=== PATIENT | female | born 1940 | race Caucasian/White ===

== ENCOUNTER 2016-09-30 13:04 | Inpatient (IN) | payer MEDICARE, BC ==
[~2016-09-30] VITALS: Ht 160 cm; Wt 67.6 kg
--- NOTE | ~2016-09-30 | CR71 ---
[facility] A Service of [facility] & [facility] RADIOLOGY TEXT RESULTS PATIENT: PARAM RUST LOCATION: [facility] 468-01 : 38 UNIT #: [id number] AGE: [address]: Roxanne May MD SEX: F ORDER DR: [id number] [facility] [address] [facility] [address]. [place], [place] [address] [id number] I MR#: [id number] Acc #: [id number] NAME: PARAM RUST : 1940 SEX: F STUDY DATE/TIME: 09/30/2016 14:02 UNIT: [facility] ROOM: [facility] STUDY DESCRIPTION: CR Chest Single View Attending Physician: Roxanne May M.D. Ordering Physician: Benjamin Gregory M.D. Primary Care Physician: Avani Mast M.D. MEDICAL IMAGING REPORT This report is preliminary unless electronic signature is present EXAM Portable chest HISTORY Tripped over curb today complains of chest pain and congestion. COMPARISON 06/24/2009 FINDINGS Portable view of the chest demonstrates parenchymal and hilar calcifications compatible with the sequela of previous granulomatous disease. Mild cardiomegaly. Diffuse aortic atherosclerotic changes. No pneumothorax or pulmonary contusion. Osseous structures show scoliosis. Dictated by... Laurie Perkins M.D. THIS IS AN ELECTRONICALLY VERIFIED REPORT Laurie Perkins M.D. at 10/01/2016 1:00 PM ERIK/callie TD: 09/30/2016 22:11 JOB #: [id number] MEDICAL IMAGING REPORT Page 1 of 1 COPY
--- NOTE | ~2016-09-30 | CO ---
Unit #: [id number] #: [id number] Patient: PARAM RUTS [id number] [address] [address] [id number] I MR#: [id number] NAME: PARAM RUST ROOM: 468 Age: 76 Sex: F Admission Date: 09/30/2016 : 1940 Attending Physician: Nadiya Larios M.D. Primary Care Physician: Avani Mast M.D. Consultation Date: 10/02/2016 CONSULTATION REPORT REASON FOR CONSULT Postop care. ADMITTING DIAGNOSIS Status post fall. HISTORY OF PRESENT ILLNESS This is a very pleasant 76-year-old female with past medical history significant for atrial fibrillation and hypertension who presented to the emergency room after she fell at a restaurant and had hit her left side. The patient was transferred to our ER where an initial workup was consistent with left hip fracture. The patient today is postop day two. The patient is on 3 L nasal cannula and her saturation is 94%. Patient stated that she never had a lung problem. She had never been on inhalers. She smoked for probably 30 years, but she quit in 1993. She denied any cough or shortness of breath at this point. PAST MEDICAL HISTORY 1. Hypertension. 2. Stroke. 3. Atrial fibrillation. PAST SURGICAL HISTORY 1. Cerebral aneurysm fixation. 2. Left hip surgery. HOME MEDICATIONS 1. Atenolol. 2. Felodipine. 3. Tylox. 4. Eliquis. ALLERGIES No known drug allergies. SOCIAL HISTORY The patient smoked for a long time, but she quit in 1993. No history of alcohol or drug abuse. FAMILY HISTORY Unremarkable. PHYSICAL EXAMINATION GENERAL: The patient is in no acute distress. Unit #: [id number] #: [id number] Patient: PARAM RUST VITAL SIGNS: Blood pressure is 154/69, respiratory rate 19, O2 saturation 94% on 3 L nasal cannula. HEENT: Atraumatic, normocephalic. PERRLA. EOMI. NECK: Supple. No JVD. No lymphadenopathy. CHEST: Clear to auscultation bilaterally. HEART: S1, S2. No murmur, gallops, or rubs. ABDOMEN: Soft, nontender. Bowel sounds are positive. No hepatosplenomegaly. EXTREMITIES: No edema or cyanosis. SKIN: No rashes. CENTRAL NERVOUS SYSTEM: Awake, alert, oriented x3. No focal motor/sensory deficits. DIAGNOSTIC STUDIES LABORATORY: Creatinine 1, sodium 131. White blood count 11, hemoglobin 10.9, platelets 197,000. ASSESSMENT 1. Acute hypoxic respiratory failure, postop related. 2. Left hip fracture. 3. Atrial fibrillation. 4. Hypertension. 5. Ex-smoker. PLAN 1. Patient currently saturating 93% on 3 L nasal cannula. Her baseline is room air and our goal is to wean her oxygen down to room air as tolerated. 2. Patient's incentive spirometer effort is about 500-700 mL. She is advised and encouraged to use her incentive spirometer every one hour to two hours while awake up to 10 times. Will add bronchodilator to help with pulmonary toilet. 3. Early ambulation and PT when allowed by orthopedic. 4. Deep venous thrombosis/gastrointestinal prophylaxis. I would like to thank Dr. Shipman for allowing me to be a part of this patient's care. Dictated by... Kinjal Osman TD: 10/02/2016 16:47 JOB #: [id number] Unit #: [id number] #: [id number] Patient: YOCASTA,PARAM CALLAWAY CONSULTATION REPORT Page 1 of 1 X MAYURI HUNTER MD CONSULTATION REPORT
--- NOTE | ~2016-09-30 | EKG ---
PATIENT: PARAM RUST UNIT #: [id number] Ventricular Rate: 72 BPM Atrial Rate: 72 BPM P-R Interval: 148 ms QRS Duration: 84 ms Q-T Interval: 376 ms QTC Calculation(Bezet): 411 ms P Drifting: 63 degrees Calculated R Drifting: 27 degrees Calculated T Drifting: -119 degrees Diagnosis Line: Sinus rhythm with Premature atrial complexes Diagnosis Line: LVH with repolarization abnormalities Diagnosis Line: Abnormal ECG Diagnosis Line: When compared with ECG of 30-SEP-2016 13:33, Diagnosis Line: (unconfirmed) Diagnosis Line: Premature ventricular complexes are no longer Diagnosis Line: Present Diagnosis Line: Inverted T waves have replaced nonspecific T wave Diagnosis Line: abnormality in Inferior leads Diagnosis Line: Confirmed by NANCY MAGAÑA MD ([id number]) on Diagnosis Line: 10/02/2016 8:26:14 PM INTERPRETING MD: BAYLEE
--- NOTE | ~2016-09-30 | CO ---
Unit #: [id number] #: [id number] Patient: PARAM RUST [id number] [facility]. [place], [place] [address] [id number] I MR#: [id number] NAME: PARAM RUST ROOM: 468 Age: 76 Sex: F Admission Date: 09/30/2016 : 1940 Attending Physician: Nadiya Larios M.D. Primary Care Physician: Avani Mast M.D. CONSULTATION REPORT REASON FOR CONSULTATION Preoperative surgical clearance. HISTORY OF PRESENT ILLNESS This is a pleasant 76-year-old female, who normally follows with Dr. Aaron. She states she has recently been at [facility] approximately 2 weeks ago for congestive heart failure. During her admission there, the patient did have an episode of paroxysmal atrial fibrillation. She underwent transesophageal echocardiogram and then cardioversion. She is currently in normal sinus rhythm. The patient also was found to have qehmwazt-ex-aikizx aortic stenosis at that time. Peak gradient of aorta aortic valve is 47 mmHg. The mean gradient of the aortic valve, 27 mmHg with aortic valve area is calculated to be 0.82 sq cm. The patient tells me that she has an upcoming appointment with surgical group; however, she does not know the surgeon's name for evaluation for potential valve replacement surgery. The patient did also undergo nuclear stress testing at [facility], which was negative for stress-induced ischemia. She also has a past medical history significant for paroxysmal atrial fibrillation, again status post cardioversion, and was discharged home on Eliquis. 1. Stroke 14 years ago. 2. Hypertension. 3. Hyperlipidemia. 4. Aneurysm repair. 5. Bladder prolapse with pessary placement. 6. The patient states she was out yesterday at [employer], when she fell over a curb. She denies any syncopal episode. She states she just simply fell on the curb. She did hit her head. CT scan was performed, which showed no evidence of bleed. She was found to have a left hip fracture and we are being asked to see for presurgical clearance. 7. At present, she is resting in bed. Her daughter is at bedside. She denies any complaints of chest pain or shortness of breath. EKG shows sinus rhythm with PVCs, rate of 89 beats per minute, criteria for LVH, cannot rule out previous septal infarct. QTc interval 433 milliseconds. PAST MEDICAL HISTORY Significant for; 1. Hypertension. 2. Hyperlipidemia, not on statin therapy. The patient states she is unable to tolerate secondary to cost as well as some myalgias. 3. History of stroke. 4. Recently diagnosed with paroxysmal atrial fibrillation at [place] Unit #: [id number] #: [id number] Patient: CASE,[facility], status post cardioversion, was discharged home on Eliquis. 5. Cerebral aneurysm repair. 6. Diastolic CHF. PAST SURGICAL HISTORY 1. Cerebral aneurysm fixation per Neurosurgery. 2. Pessary placement. 3. Plate in the left wrist. HOME MEDICATIONS 1. Felodipine ER 2.5 mg p.o. daily. 2. Tenormin 25 mg p.o. daily. 3. Eliquis 2.5 mg p.o. b.i.d. ALLERGIES No known drug allergies. The patient reports an intolerance to aspirin, so she will not take it, and had severe bleeding secondary to aspirin in the past as well as statin therapy. SOCIAL HISTORY The patient is a reformed smoker, quit in 1994. Denies illicit drugs or alcohol. FAMILY HISTORY Positive for coronary artery disease, questionable NE. The patient's brother at age 47. PHYSICAL EXAMINATION GENERAL: This is a very pleasant, elderly female, 76-year-old. Daughter is currently present at bedside. VITAL SIGNS: Temperature 98.6, respiratory rate 16 to 18, pulse is 71, and blood pressure is 119/53. HEENT: Head is atraumatic and normocephalic. Pupils are equal and round. NECK: Trachea is midline. No lymphadenopathy or thyromegaly. Positive for JVD. CARDIOVASCULAR: S1 to S2. Regular rate and rhythm. Positive murmur, best heard at the right sternal border. LUNGS: Clear to auscultation anterior. Some fine rales in the bases with scattered wheezes noted. ABDOMEN: Soft, nontender, and nondistended. Bowel sounds are present. EXTREMITIES: Pulses are palpable, but weak. No edema, clubbing, or cyanosis is noted. NEUROLOGIC: She is awake, alert, and oriented. She moves all extremities with the exception of the left leg secondary to hip fracture. Follows commands with ease. DIAGNOSTIC STUDIES LABORATORY RESULTS: Sodium 134, potassium 3.5, chloride 102, CO2 of 26, BUN 22, creatinine 1.1, and glucose 108. PT 11.3 and INR 1.0. Hemoglobin 11.7, hematocrit 36.1, WBC 10.2, and platelet count 227. IMAGING RESULTS: Chest x-ray, mild cardiomegaly. Parenchymal and hilar calcifications compatible with sequelae of previous granulomatous disease. Diffuse aortic atherosclerotic change, no pneumo or pulmonary contusion. Osseous structures show scoliosis. Unit #: [id number] #: [id number] Patient: CASE,PARAM CALLAWAY X-ray of the hip shows mildly varus angulated proximal left femur fracture, probably representing an intertrochanteric fracture. CT of the head shows no definite acute intracranial abnormality. Status post right suboccipital craniotomy with encephalomalacia, right cerebellar hemisphere most likely related to prior vascular insult or trauma. Scattered periventricular white matter change, most likely related to small-vessel ischemic disease. CT of the cervical spine shows degenerative changes noted at multiple levels of the cervical spine with varying degrees of neuroforaminal narrowing predominantly involving right C3 and C4, bilateral C4 and C5, bilateral C5 and C6, right worse than left. Mild bilateral neuroforaminal narrowing is suspected at C6 and C7. No significant canal stenosis. Borderline size canal is noted in the mid cervical spine. No acute displaced fracture. CARDIOVASCULAR STUDIES: EKG shows normal sinus rhythm, rate of 89 beats per minute. PVCs are present. LVH. QTc interval of 433 milliseconds. Cannot rule out previous septal infarct. No acute ischemic changes noted. IMPRESSION 1. Status post fall. 2. Left hip fracture. 3. History of paroxysmal atrial fibrillation, recently at [facility], requiring subsequent NEISHA and cardioversion, now in normal sinus rhythm. The patient was on Eliquis. 4. Cobcagwp-gt-gkdktd aortic stenosis per NEISHA at [facility]. Peak gradient in the aortic valve is 47 mmHg. The mean gradient is 27 mmHg. The aortic valve area is calculated at 0.82 sq cm. 5. Recent Lexiscan Cardiolite, normal at [facility]. 6. History of diastolic congestive heart failure with EF of 61% per 2D echo on 09/09/2016. 7. Hypertension. 8. Hyperlipidemia. 9. History of cerebrovascular accident 14 years ago and history of cerebral aneurysm repair. PLAN We have been asked to see the patient secondary to cardiac clearance. She denies any complaints of chest pain. At present, the patient states her last Eliquis dose was at 10:[address] Sal will discuss with Dr. Leary about the patient's last dose of Eliquis. She states the patient's is able to undergo surgery in a moderate but acceptable risk as long as they do not get into issues with hypotension during the case. If so, I would recommend pushing fluids. We will check a Mag level as the patient is having some ventricular ectopy. We will give her an additional 20 mEq of KCl x1 now and repeat CBC and BMP as well as EKG in the morning. Thank you for asking us to see this patient. We will follow along and she will follow up with Dr. Aaron at discharge. Unit #: [id number] #: [id number] Patient: CASE,PARAM CALLAWAY Dictated by... Adri Brito A.P.R.N. LMW/modl TD: 10/02/2016 02:33 JOB #: [id number] CONSULTATION REPORT Page 1 of 1 X Adri Brito APRN CONSULTATION REPORT
--- NOTE | ~2016-09-30 | CR106 ---
[facility] A Service of [facility] & [facility] RADIOLOGY TEXT RESULTS PATIENT: PARAM RUST LOCATION: [facility] 468-01 : 38 UNIT #: [id number] AGE: [address]: Roxanne May MD SEX: F ORDER DR: [id number] [facility] [address] [facility]. [place], [place] [address] [id number] I MR#: [id number] Acc #: [id number] NAME: PARAM RUST : 1940 SEX: F STUDY DATE/TIME: 09/30/2016 14:05 UNIT: [facility] ROOM: [facility] STUDY DESCRIPTION: CR Femur 2 Views Lt Attending Physician: Roxanne May M.D. Ordering Physician: Benjamin Gregory M.D. Primary Care Physician: Avani Mast M.D. MEDICAL IMAGING REPORT This report is preliminary unless electronic signature is present EXAM Left femur multiple views HISTORY Tripped over curb today. Left hip and femur pain. FINDINGS Routine views of the left femur demonstrates a mildly displaced proximal left femur fracture may represent either subtrochanteric or intertrochanteric fracture with mild varus angulation. Over 2 cm of displacement of the distal fracture fragment medial. Hip joint appears maintained. Soft tissues unremarkable. Small density at the line at the level of the fracture line may represent a small fracture fragment. Dictated by... Laurie Perkins M.D. THIS IS AN ELECTRONICALLY VERIFIED REPORT Laurie Perkins M.D. at 10/01/2016 1:00 PM ERIK/callie TD: 09/30/2016 22:17 JOB #: [id number] MEDICAL IMAGING REPORT Page 1 of 1 COPY
--- NOTE | ~2016-09-30 | CR150 ---
[facility] A Service of [facility] & [facility] RADIOLOGY TEXT RESULTS PATIENT: PARAM RUST LOCATION: [facility] 468-01 : 38 UNIT #: [id number] AGE: [address]: Roxanne May MD SEX: F ORDER DR: [id number] [facility] [address] [facility]. [place], [place] [address] [id number] I MR#: [id number] Acc #: [id number] NAME: PARAM RUST : 1940 SEX: F STUDY DATE/TIME: 10/01/2016 13:17 UNIT: [facility] ROOM: [facility] STUDY DESCRIPTION: CR Hip Min 2 Views Lt Attending Physician: Roxanne May M.D. Ordering Physician: José Mendes M.D. Primary Care Physician: Avani Mast M.D. MEDICAL IMAGING REPORT This report is preliminary unless electronic signature is present EXAM Left hip HISTORY 76-year-old female status post left hip ORIF for fracture. FINDINGS Six intraoperative digital radiographs submitted. 1 minute 21 seconds fluoro time utilized. Sequence of radiographs demonstrates intraoperative fixation of a intertrochanteric left femur fracture with a intramedullary nail and interlocking hip screw. Final AP view demonstrates the fracture to be in anatomic position with normal anatomic alignment. Hip joint unremarkable. IMPRESSION Status post ORIF left intertrochanteric hip fracture in expected position. Dictated by... Laurie Perkins M.D. THIS IS AN ELECTRONICALLY VERIFIED REPORT Laurie Perkins M.D. at 10/02/2016 7:14 AM ERIK/finn TD: 10/02/2016 00:05 JOB #: [id number] MEDICAL IMAGING REPORT Page 1 of 1 COPY
--- NOTE | ~2016-09-30 | CO ---
Unit #: [id number] #: [id number] Patient: PARAM PUENTE [id number] [address] [address] [id number] I MR#: [id number] NAME: PARAM PUENTE ROOM: 468 Age: 76 Sex: F Admission Date: 09/30/2016 : 1940 Attending Physician: Roxanne May M.D. Primary Care Physician: Avani Mast M.D. Consultation Date: 09/30/2016 CONSULTATION REPORT CHIEF COMPLAINT Left hip fracture. HISTORY OF PRESENT ILLNESS Ms. Puente is a 76-year-old female, who fell and tripped outside of [employer]. She tripped over a concrete parking curb. She was unable to stand or bear weight on the affected extremity. She was brought by EMS to the emergency department, where plain film radiographs confirmed a left intertrochanteric hip fracture. Orthopedic consultation was subsequently requested. The patient is examined supine in her hospital bed. She states that she is unable to move or rotate the left lower extremity at all. movement causes severe pain in the left leg and hip. It is relieved by pain medication and immobilization. She previously ambulated with a cane or walker occasionally. PAST MEDICAL HISTORY 1. Reported history of valvular insufficiency possible aortic valve. 2. Hypertension. 3. History of CVA. 4. Atrial fibrillation. PAST SURGICAL HISTORY 1. Unspecified prior surgery for cerebral aneurysm possible coiling. 2. Cardioversion of atrial fibrillation. HOME MEDICATIONS Atenolol, felodipine, Eliquis. ALLERGIES No known drug allergies. FAMILY HISTORY Noncontributory to the current illness. REVIEW OF SYSTEMS Ten systems are reviewed and negative except as noted in the HPI. PHYSICAL EXAMINATION GENERAL APPEARANCE: Healthy-appearing female, appearing stated age, in no acute distress. Unit #: [id number] #: [id number] Patient: PARAM UPENTE PSYCHIATRIC: Awake, alert, and oriented to person, place, time, and situation. HEENT: Normocephalic and atraumatic cranium. Pupils are equally round and reactive to light. CARDIAC: Irregularly irregular rhythm. PULMONARY: No increased work of breathing. Symmetric chest rise. ABDOMEN: Nontender and nondistended. NEUROLOGIC: Intact motor and sensory function in the left foot and EHL and FHL as well as in plantar flexion and dorsiflexion. VASCULAR: Her feet are warm and well perfused with a palpable 2+ dorsalis pedis pulse. SKIN: There is no evidence of open injury. There is soft tissue swelling and early ecchymosis. MUSCULOSKELETAL: Left lower extremity shortened and externally rotated. Further range of motion is deferred. DIAGNOSTIC STUDIES IMAGING STUDIES: Plain film radiographs reviewed of the left hip and demonstrated an intertrochanteric hip fracture with somewhat of a subtrochanteric variant. LABORATORY RESULTS: Hemoglobin is 13.2, otherwise unremarkable. IMPRESSION This is a 76-year-old female with a left intertrochanteric variant hip fracture after a ground level mechanical fall. Preoperative cardiac clearance has been requested. Plan is that she is to undergo aortic valve repair. It sounds in the next several weeks. She is also on Eliquis as well. She had her last dose this morning. We will plan for surgical intervention tomorrow. Pending cardiac clearance. increased perioperative bleeding risks on Eliquis, but further delay in surgical fixation is felt to likely further compromise her ultimate outcome. She is to be n.p.o. after midnight with again plan for surgery tomorrow pending cardiac clearance. Dictated by... Kinjal Cormier/dave TD: 10/01/2016 06:55 JOB #: [id number] CONSULTATION REPORT Page 1 of 1 X José Mendes MD CONSULTATION REPORT
--- NOTE | ~2016-09-30 | HP ---
Unit #: [id number] #: [id number] Patient: PARAM PUENTE [id number] [facility] [address] [facility]. [place], [place] [address] [id number] I MR#: [id number] NAME: PARAM PUENTE ROOM: 468 Age: 76 Sex: F Admission Date: 09/30/2016 : 1940 Attending Physician: Roxanne May M.D. Primary Care Physician: Avani Mast M.D. HISTORY AND PHYSICAL ADMISSION DIAGNOSES 1. Status post fall. 2. Left hip fracture. 3. History of recently diagnosed atrial fibrillation. 4. Hypertension. 5. History of cerebrovascular accident in the past. HISTORY OF PRESENT ILLNESS Ms. Puente is a 76-year-old female, a patient of Dr. Avani Barriga, who was apparently having lunch at a restaurant. When she was leaving the restaurant, she tripped on the curb and sustained a fall on the left side, sustaining a left hip fracture along with a left-sided (1) laceration. The patient was brought to [facility]. Again, initial evaluation showed a left intertrochanteric hip fracture. Apparently she already took her Eliquis today. She has been evaluated by orthopedic surgery, and she is due to undergo ORIF or IM nail tomorrow morning. She currently appears comfortable. Denies any chest pain, shortness of air, headache, dizziness, fever, chills, nausea, vomiting, diarrhea, cough, syncope or pre-syncope. REVIEW OF SYSTEMS A 12-point review of systems on this patient is basically negative except as above. PAST MEDICAL HISTORY Significant for history of hypertension, history of stroke and recently diagnosed A fib. PAST SURGICAL HISTORY Significant for cerebral aneurysm fixation per neurosurgeons. HOME MEDICATIONS Include atenolol, felodipine, Tylox, Tylenol, Eliquis. ALLERGIES No known drug allergies. SOCIAL HISTORY She is a reformed smoker. Denies any alcohol or illicit drugs. FAMILY HISTORY Unit #: [id number] #: [id number] Patient: PARAM PUENTE Unremarkable. PHYSICAL EXAMINATION GENERAL: She is a 76-year-old female in no acute distress. VITAL SIGNS: BP 144/63, heart rate 47, respirations 14, temperature 98.3. HEENT: Head is atraumatic. Pupils are equal, round and reactive to light and accommodation. Extraocular muscles are intact. Oropharynx is clear. NECK: Neck is supple. No masses. No JVD. No bruit. RESPIRATORY: Chest is diminished at the bases; generally clear. CARDIOVASCULAR: S1, S2. No murmurs. ABDOMEN: Abdomen is soft, nontender, nondistended. EXTREMITIES: Lower extremities have no cyanosis, clubbing or edema. NEUROLOGIC: Patient grossly intact. No focal deficits. LABS AND DIAGNOSTICS LABS: Chemistry significant for blood glucose of 153, GFR 48.1, potassium 3.4. Coagulation panel unremarkable. Hematology unremarkable. IMAGING: The x-ray, as above, shows left hip fracture. ASSESSMENT AND PLAN 1. Status post fall. 2. Left hip fracture status post ortho evaluation. Scheduled for surgery in the morning. Cardiology clearance pending. 3. History of recently diagnosed atrial fibrillation status post cardioversion and on chronic anticoagulation. Continue per cardiology. Holding Eliquis for surgery. 4. Hypertension. Resume home meds. 5. GI and DVT prophylaxis with Protonix. Patient already had Eliquis today. Dictated by Kinjal Cintron/brenda TD: 10/01/2016 07:51 JOB #: [id number] HISTORY AND PHYSICAL Page 1 of 1 X Jorge L Shipman MD X HISTORY AND PHYSICAL
--- NOTE | ~2016-09-30 | DS ---
Unit #: [id number] #: [id number] Patient: PARAM PUENTE [id number] [address] [address] [id number] I MR#: [id number] NAME: PARAM PUENTE ROOM: 468 Age: 76 Sex: F Admission Date: 09/30/2016 : 1940 Discharge Date: 10/04/2016 Attending Physician: Nadiya Larios M.D. Primary Care Physician: Avani Mast M.D. DISCHARGE SUMMARY FINAL DIAGNOSES 1. Left hip fracture, status post surgery, postop day three. 2. Hypertension. 3. History of chronic diastolic congestive heart failure. 4. Acute hypoxic respiratory failure postop, which is resolved. 5. Paroxysmal atrial fibrillation, on anticoagulation therapy. 6. Aortic stenosis. 7. History of cerebrovascular accident. 8. Hyperlipidemia. DISCHARGE MEDICATIONS 1. Mini neb treatment with Duo-Neb q.i.d. and q.4 p.r.n. 2. Tylenol 650 q.6 p.r.n. 3. Eliquis 2.5 mg q.12. 4. Tenormin 25 mg daily. 5. Senokot two tablets p.o. twice a day. 6. Milk of mag q.6 p.r.n. 7. MiraLAX 17 grams twice a day. Please hold this medication is patient is having diarrhea. 8. Lipitor 20 mg q. h.s. 9. Plendil 2.5 mg daily. 10. Glycerin suppository p.r.n. for constipation. 11. Motrin 600 mg q.8 hours p.r.n. for pain. 12. Hydrocodone 5/325, one tablet q.6 p.r.n. 13. Protonix 40 mg daily. CONSULTATION DURING HOSPITALIZATION 1. Dr. Mendes - Orthopedic Surgery. 2. Dr. Ibarra - Cardiology Services. 3. Dr. Joceline Galindo - Pulmonary Services. LAB WORKUP ON DISCHARGE BMP shows sodium 132, potassium 4.0, chloride 103, BUN 25, creatinine 1.1, GFR 48.1, calcium 8.2. CBC shows WBC 10.1, hemoglobin 10.4, hematocrit 30.9 and platelet count of 169. Troponin less than 0.03. Magnesium 1.9. SIGNIFICANT RADIOLOGICAL STUDIES DONE DURING HOSPITALIZATION Hip x-ray which was done on admission showed left femur fracture. CT scan of the head without contrast which shows no definite acute Unit #: [id number] #: [id number] Patient: CASE,PARAM CALLAWAY intracranial abnormality, status post right suboccipital craniotomy with encephalomalacia right cerebellar hemisphere, most likely related to prior vascular insult. CT scan of the cervical spine which showed degenerative changes are noted at multiple levels of surgical spine with some foraminal narrowing involving C3-C4, bilateral C4-C5, bilateral C5-C6. No significant canal stenosis is noted. No acute fracture is noted. PAST SURGICAL HISTORY Significant for: 1. Cerebral aneurysm surgery many years ago. 2. Left distal radial fracture. Surgery was done in [address] Bernardo. HOSPITAL COURSE Ms. Puente is a 76-year-old female who was admitted by my colleague, Dr. Shipman, after she sustained a fall at home. The patient had left hip fracture. Was seen by orthopedic surgeon. The patient had surgery done and doing very well. After the surgery, the patient did have acute hypoxic respiratory failure. Dr. Galindo was consulted from pulmonary services and patient was started on oxygen and mini neb treatment. Incentive spirometry was encouraged every one to two hours. Ambulation was started, PT was started, and patient is doing much better at this time. The patient was also seen by cardiology for preoperative clearance. The patient does have a history of paroxysmal atrial fibrillation which was recently diagnosed at [facility] requiring subsequent NEISHA and cardioversion. The patient is in normal sinus rhythm and she is on anticoagulation therapy which is Eliquis. The patient does have history of moderate to severe aortic stenosis but NEISHA at [facility]. The patient had a recent Lexiscan Cardiolite test done which was normal at [facility]. The patient does have a history of diastolic congestive heart failure with a systolic ejection fraction of 61%. The patient has had a history of CVA 14 years ago and history of cerebral aneurysm repair as per surgical history. I have discussed with patient's daughter at length. The patient is being transferred to rehab facility. EXAMINATION ON DISCHARGE Blood pressure 129/62, respiratory rate 16, pulse is 64, temperature 97.9. Oxygen saturation is 99%. HEAD: Normocephalic. CHEST: Fair air entry. CVS: S1 is positive. Regular rhythm. ABDOMEN: Soft. EXTREMITIES: Pulses are palpable. DISCHARGE INSTRUCTIONS 1. The patient is being discharged to detention at rehab facility. 2. Medications as per Med Rec. 3. PT/OT per ortho. 4. CBC, BMP in three to four days. 5. Please place dry 4 x 4 and Tegaderm over each incision and change daily. 6. Please do lipid profile and liver enzymes in six weeks as patient has been started on anti-lipid medications. 7. Continue incentive spirometry. Unit #: [id number] #: [id number] Patient: CASE,PARAM CALLAWAY Dictated by... Kinjal River/garcia TD: 10/04/2016 12:11 JOB #: [id number] DISCHARGE SUMMARY Page 1 of 1 X Nadiya Larios MD X DISCHARGE SUMMARY
--- NOTE | ~2016-09-30 | EKG ---
PATIENT: PARAM RUST UNIT #: [id number] Ventricular Rate: 89 BPM Atrial Rate: 89 BPM P-R Interval: 136 ms QRS Duration: 88 ms Q-T Interval: 356 ms QTC Calculation(Bezet): 433 ms P [place]: 55 degrees Calculated R [place]: 12 degrees Calculated T [place]: -162 degrees Diagnosis Line: Sinus rhythm with Premature supraventricular Diagnosis Line: complexes with occasional Premature ventricular Diagnosis Line: complexes Diagnosis Line: Left ventricular hypertrophy with repolarization Diagnosis Line: abnormality Diagnosis Line: Abnormal ECG Diagnosis Line: When compared with ECG of 24-JUN-2009 10:57, Diagnosis Line: Premature ventricular complexes are now Present Diagnosis Line: Premature supraventricular complexes are now Diagnosis Line: Present Diagnosis Line: Minimal criteria for Septal infarct are now Diagnosis Line: Present Diagnosis Line: T wave inversion more evident in Lateral leads Diagnosis Line: Confirmed by NANCY MAGAÑA MD ([id number]) on Diagnosis Line: 10/02/2016 8:12:21 PM INTERPRETING MD: BAYLEE
--- NOTE | ~2016-09-30 | CT71 ---
[facility] A Service of [facility] & [facility] RADIOLOGY TEXT RESULTS PATIENT: PARAM RUST LOCATION: [facility] 468 : 38 UNIT #: [id number] AGE: [address]: Roxanne May MD SEX: F ORDER DR: [id number] [facility]. [place], [place] [address] [id number] I MR#: [id number] Acc #: [id number] NAME: PARAM RUST : 1940 SEX: F STUDY DATE/TIME: 09/30/2016 14:34 UNIT: [facility] ROOM: [facility] STUDY DESCRIPTION: CT Head Wo Contrast Attending Physician: Roxanne May M.D. Ordering Physician: Benjamin Gregory M.D. Primary Care Physician: Avani Mast M.D. MEDICAL IMAGING REPORT This report is preliminary unless electronic signature is present EXAM Noncontrast head CT HISTORY Trauma, fell, hit head neck tenderness and headaches. Past history of cerebral aneurysm. TECHNIQUE This CT exam was performed with one or more of the following radiation dose reduction techniques: automatic control, adjustment of mA and/or kV according to patient size, and iterative reconstruction. FINDINGS Axial noncontrast imaging of the brain demonstrates postsurgical changes from suboccipital craniotomy. Decreased attenuation of the right cerebellar hemisphere compatible with encephalomalacia and probable old vascular insult. Generalized periventricular white matter changes. No mass or mass effect or midline shift. No hemorrhage or abnormal extraaxial fluid collections. Mastoids sinuses unremarkable. IMPRESSION 1. No definite acute intracranial abnormality. 2. Status post right suboccipital craniotomy with encephalomalacia right cerebellar hemisphere most likely related to prior vascular insult or trauma. 3. Scattered periventricular white matter changes most likely related to small vessel ischemic disease. Dictated by.Noemí Perkins M.D. [facility] A Service [facility] & [facility] RADIOLOGY TEXT RESULTS PATIENT: PARAM RUST LOCATION: [facility] 468 : 38 UNIT #: [id number] AGE: [address]: Roxanne May MD SEX: F ORDER DR: THIS IS AN ELECTRONICALLY VERIFIED REPORT Laurie Perkins M.D. at 10/01/2016 1:00 PM ERIK/callie TD: 09/30/2016 22:18 JOB #: [id number] MEDICAL IMAGING REPORT Page 1 of 1 COPY
--- NOTE | ~2016-09-30 | CT52 ---
[facility] A Service of [facility] & [facility] RADIOLOGY TEXT RESULTS PATIENT: PARAM RUST LOCATION: [facility] 468-01 : 38 UNIT #: [id number] AGE: [address]: Nadiya Larios MD SEX: F ORDER DR: [id number] [facility] [address] [facility] [place], [place] [address] [id number] I MR#: [id number] Acc #: [id number] NAME: PARAM RUST : 1940 SEX: F STUDY DATE/TIME: 09/30/2016 14:36 UNIT: [facility] ROOM: [facility] STUDY DESCRIPTION: CT Cervical Spine Wo Cont Attending Physician: Roxanne May M.D. Ordering Physician: Benjamin Gregory M.D. Primary Care Physician: Avani Mast M.D. MEDICAL IMAGING REPORT This report is preliminary unless electronic signature is present EXAM CT of the cervical spine without contrast dated 09/30/2016 COMPARISON None HISTORY Status post fall at store today. Left sided head injury. Headache and neck tenderness in the posterior aspect. TECHNIQUE This CT exam was performed with one or more of the following radiation dose reduction techniques: automatic control, adjustment of mA and/or kV according to patient size, and iterative reconstruction. FINDINGS CT of the cervical spine was obtained without contrast in the axial plane followed by sagittal and coronal reformats. No acute fracture. Multilevel endplate osteophyte are noted in the cervical spine particularly from C3-4 to C5-6. C1-2 and C7-T1 junctions are intact. Postoperative changes are noted in the posterior fossa. There is a large craniectomy in the mid to right paramidline aspect of occipital bone measuring about 4.4 cm at least in transverse dimension. Underlying encephalomalacic changes are noted in the cerebral hemisphere. There is unfused posterior arch of C1. Mild calcifications of the transverse ligament is seen. C2-3: Mild degenerative disc disease at moderate to severe right facet hypertrophic change with mild right neural foraminal encroachment. No canal stenosis. C3-4: Disc osteophyte complex with bilateral uncinate spurs particularly on the right. Severe right neural foraminal narrowing is seen with mild STS. [facility] A Service of [facility] & [facility] RADIOLOGY TEXT RESULTS PATIENT: CASE,PARAM CALLAWAY LOCATION: [facility] 468-01 : 38 UNIT #: [id number] AGE: [address]: Nadiya Larios MD SEX: F ORDER DR: right facet hypertrophic change. No canal stenosis. C4-5: Disc osteophyte complex with bilateral uncinate spurs. Moderate right and mild left facet hypertrophic changes are noted with severe bilateral neural foraminal narrowing, worse on the right. Borderline size canal. C5-6: Disc osteophyte complex with bilateral uncinate spurs and moderate to severe bilateral neural foraminal narrowing without any significant canal stenosis. Mild bilateral facet changes. C6-7: Disc osteophyte complex without significant canal stenosis. There is mild bilateral neural foraminal encroachment. C7-T1: No significant abnormality. IMPRESSION 1. Degenerative changes are noted at multiple levels of the cervical spine with varying degrees of neural foraminal narrowing predominantly involving right C3-4, bilateral C4-5, bilateral C5-6 (right worse than left). Correlate with appropriate radiculopathy. Mild bilateral neural foraminal narrowing is suspected at C6-7 also. 2. No significant canal stenosis. Borderline size canal is noted in the mid cervical spine. 3. No acute displaced fracture. Dictated by... Lashay Her M.D. THIS IS AN ELECTRONICALLY VERIFIED REPORT Lashay Her M.D. at 10/02/2016 7:31 PM CPR/rnr TD: 09/30/2016 22:38 JOB #: [id number] MEDICAL IMAGING REPORT Page 1 of 1 COPY
--- NOTE | ~2016-09-30 | CR150 ---
[facility] A Service of [facility] & [facility] RADIOLOGY TEXT RESULTS PATIENT: PARAM RUST LOCATION: [facility] 468-01 : 38 UNIT #: [id number] AGE: [address]: Roxanne May MD SEX: F ORDER DR: [id number] [facility] [address] [place], [place] [address] [id number] I MR#: [id number] Acc #: [id number] NAME: PARAM RUST : 1940 SEX: F STUDY DATE/TIME: 09/30/2016 14:04 UNIT: [facility] ROOM: [facility] STUDY DESCRIPTION: CR Hip Min 2 Views Lt Attending Physician: Roxanne May M.D. Ordering Physician: Benjamin Gregory M.D. Primary Care Physician: Avani Mast M.D. MEDICAL IMAGING REPORT This report is preliminary unless electronic signature is present EXAM Left hip and pelvis HISTORY Tripped over curb and fell today hip pain. FINDINGS AP pelvis and left hip demonstrates a displaced intertrochanteric fracture of the proximal left femur with mild varus angulation. Minimal impaction. Femoral head remains intact. No significant hip arthropathy. Degenerative changes seen in the lumbar spine. Generalized osteopenia. IMPRESSION And mildly varus angulated proximal left femur fracture probably represents an intertrochanteric fracture. No significant hip arthropathy. Dictated by... Laurie Perkins M.D. THIS IS AN ELECTRONICALLY VERIFIED REPORT Laurie Perkins M.D. at 10/01/2016 1:00 PM ERIK/callie TD: 09/30/2016 22:15 JOB #: [id number] MEDICAL IMAGING REPORT Page 1 of 1 COPY
[~2016-09-30 13:04] MED LIST: ATENOLOL25 MG PO; FELODIPINE ER5 MG PO; TYLENOL325 M1 PO; TYLOX1 CAP 5/50 PO
[2016-09-30 15:05] LABS: BASOPHIL% 0.5 % (0-2.5); DIFF IND NO; EOSINOPHIL# 0.1 X10e3 (0-0.7); EOSINOPHIL% 0.6 % (0.0-7.0); HEMATOCRIT 40.7 % (35.0-45.0); HEMOGLOBIN 13.2 gm/dL (12.0-16.0); LYMPHOCYTE# 1.8 X10e3 (1.0-3.5); LYMPHOCYTE% 17.7 % (17.0-45.0); MEAN CELL VOLUME 87.7 FL (83-96); MEAN CORPUSCULAR HEMOGLOBIN 28.5 PG (28-34); MEAN CORPUSCULAR HGB CONC 32.5 g/dL (30-36); MEAN PLATELET VOLUME 9.6 FL (6.5-11.5); MONOCYTE# 0.6 X10e3 (0-1.0); MONOCYTE% 5.9 % (3.0-12.0); NEUTROPHIL# 7.8 X10e3 (1.5-7.1); NEUTROPHIL% 75.3 % (40-75); PLATELET COUNT 288 X10e3 (140-420); RED BLOOD COUNT 4.64 X10e (3.90-5.30); RED CELL DISTRIBUTION WIDTH 14.4 % (11.0-15.5); WHITE BLOOD COUNT 10.4 X10e3 (4.0-10.5)
[2016-09-30 15:17] LABS: PARTIAL THROMBOPLASTIN TIME 26.3 SECONDS (23.5-31.3); PROTHROMBIN TIME (PATIENT) 11.3 SECONDS (10.0-11.7)
[2016-09-30] MEDS ORDERED: FELODIPINE ER2.5 MG PO (15:25)
[2016-09-30] MEDS ORDERED: TENORMIN25 M1 PO (15:26)
[2016-09-30] MEDS ORDERED: ELIQUIS2.5 MG PO (15:26)
[2016-09-30 15:30] LABS: BUN/CREATININE RATIO 17.27; CALCIUM SERUM 9.2 mg/dL (8.4-10.2); CREATININE SERUM 1.1 mg/dL (0.6-1.4); GLOM FILT RATE Estimated 48.1 mL/min (>60); POTASSIUM 3.4 mmol/L (3.5-5.1)
[2016-10-01 03:14] LABS: BASOPHIL# 0.1 X10e3 (0-0.3); BASOPHIL% 0.7 % (0-2.5); EOSINOPHIL# 0.3 X10e3 (0-0.7); EOSINOPHIL% 2.7 % (0.0-7.0); HEMATOCRIT 36.1 % (35.0-45.0); HEMOGLOBIN 11.7 gm/dL (12.0-16.0); LYMPHOCYTE# 2.3 X10e3 (1.0-3.5); LYMPHOCYTE% 22.1 % (17.0-45.0); MEAN CELL VOLUME 88.1 FL (83-96); MEAN CORPUSCULAR HEMOGLOBIN 28.5 PG (28-34); MEAN CORPUSCULAR HGB CONC 32.4 g/dL (30-36); MEAN PLATELET VOLUME 8.7 FL (6.5-11.5); MONOCYTE# 0.7 X10e3 (0-1.0); NEUTROPHIL# 6.9 X10e3 (1.5-7.1); NEUTROPHIL% 67.5 % (40-75); PLATELET COUNT 227 X10e3 (140-420); RED CELL DISTRIBUTION WIDTH 14.6 % (11.0-15.5); WHITE BLOOD COUNT 10.2 X10e3 (4.0-10.5)
[2016-10-01 03:18] LABS: DIFF IND NO
[2016-10-01 03:37] LABS: CALCIUM SERUM 8.6 mg/dL (8.4-10.2); CREATININE SERUM 1.1 mg/dL (0.6-1.4); GLOM FILT RATE Estimated 48.1 mL/min (>60); POTASSIUM 3.5 mmol/L (3.5-5.1)
[2016-10-02 03:52] LABS: BASOPHIL# 0.1 X10e3 (0-0.3); BASOPHIL% 0.5 % (0-2.5); EOSINOPHIL# 0.4 X10e3 (0-0.7); EOSINOPHIL% 3.3 % (0.0-7.0); HEMATOCRIT 34.2 % (35.0-45.0); HEMOGLOBIN 10.9 gm/dL (12.0-16.0); LYMPHOCYTE# 1.8 X10e3 (1.0-3.5); LYMPHOCYTE% 16.6 % (17.0-45.0); MEAN CELL VOLUME 87.8 FL (83-96); MEAN CORPUSCULAR HEMOGLOBIN 27.9 PG (28-34); MEAN CORPUSCULAR HGB CONC 31.8 g/dL (30-36); MONOCYTE# 0.8 X10e3 (0-1.0); MONOCYTE% 7.2 % (3.0-12.0); NEUTROPHIL% 72.4 % (40-75); PLATELET COUNT 197 X10e3 (140-420); RED CELL DISTRIBUTION WIDTH 14.5 % (11.0-15.5)
[2016-10-02 03:53] LABS: DIFF IND NO
[2016-10-02 04:34] LABS: CALCIUM SERUM 8.4 mg/dL (8.4-10.2); GLOM FILT RATE Estimated 53.9 mL/min (>60)
[2016-10-02 13:52] LABS: %MB 0.8 % (0.0-4.0); MB 1.6 ng/ml
[2016-10-03 04:21] LABS: BASOPHIL% 0.5 % (0-2.5); EOSINOPHIL# 0.6 X10e3 (0-0.7); EOSINOPHIL% 5.6 % (0.0-7.0); HEMATOCRIT 30.9 % (35.0-45.0); HEMOGLOBIN 10.4 gm/dL (12.0-16.0); LYMPHOCYTE# 1.5 X10e3 (1.0-3.5); LYMPHOCYTE% 14.9 % (17.0-45.0); MEAN CELL VOLUME 87.7 FL (83-96); MEAN CORPUSCULAR HEMOGLOBIN 29.5 PG (28-34); MEAN CORPUSCULAR HGB CONC 33.6 g/dL (30-36); MEAN PLATELET VOLUME 9.1 FL (6.5-11.5); MONOCYTE# 0.7 X10e3 (0-1.0); MONOCYTE% 7.3 % (3.0-12.0); NEUTROPHIL# 7.2 X10e3 (1.5-7.1); NEUTROPHIL% 71.7 % (40-75); PLATELET COUNT 169 X10e3 (140-420); RED BLOOD COUNT 3.52 X10e (3.90-5.30); RED CELL DISTRIBUTION WIDTH 14.4 % (11.0-15.5); WHITE BLOOD COUNT 10.1 X10e3 (4.0-10.5)
[2016-10-03 04:22] LABS: DIFF IND NO
[2016-10-03 04:51] LABS: BUN/CREATININE RATIO 22.72; CALCIUM SERUM 8.2 mg/dL (8.4-10.2); CREATININE SERUM 1.1 mg/dL (0.6-1.4); GLOM FILT RATE Estimated 48.1 mL/min (>60)
== END 2016-10-04 18:32 | DRG 480 ==
LOC: CED 13:04 → CEDOF 15:30 → C4C 15:30 → CED 16:32 → CEDOF 16:32 → C4C 16:35
PROVIDERS: Emergency Medicine; Hospitalist; Internal Medicine Cardiovascular Disease; Orthopaedic Surgery; Physician Assistant Medical
PROC: 0QS706Z Reposition Left Upper Femur with Intramedullary Internal Fixation Device, Open Approach (ICD-10-PCS; principal; 2016-10-01 12:00)
DX: S72.142A Displaced intertrochanteric fracture of left femur, initial encounter for closed fracture (principal); J96.01 Acute respiratory failure with hypoxia; I11.0 Hypertensive heart disease with heart failure; I50.32 Chronic diastolic (congestive) heart failure; W01.0XXA Fall on same level from slipping, tripping and stumbling without subsequent striking against object, initial encounter; Y92.511 Restaurant or cafe as the place of occurrence of the external cause; Z87.891 Personal history of nicotine dependence; I48.0 Paroxysmal atrial fibrillation; Z79.01 Long term (current) use of anticoagulants; I35.0 Nonrheumatic aortic (valve) stenosis; Z86.73 Personal history of transient ischemic attack (TIA), and cerebral infarction without residual deficits; E78.5 Hyperlipidemia, unspecified; K59.00 Constipation, unspecified
CPT/HCPCS: 36415; 70450; 71010; 72125; 73502; 73552; 76000; 80048; 82550; 82553; 83735; 84484; 85025; 85610; 85730; 93005; 94640; 94760; 94761; 96374; 96375; 97110; 97116; 97163; 97167; 97530; 97535; 99285; C1713; G8978-GP; G8979-GP; G8987-GO; G8988-GO; J0690; J2270; J2370; J2405; J3010